=== PATIENT | male | born 2000 | race Caucasian/White ===

== ENCOUNTER 2023-08-10 11:27 | Outpatient (CLI) | payer OTHER ==
--- NOTE | 2023-08-10 20:02 | XRAY Report ---
PROCEDURE: Foot 3 View RT INDICATIONS: RIGHT FOOT PAIN TECHNIQUE: 3 views of the foot were acquired. COMPARISON: None. FINDINGS: Bones: No fractures or dislocations. No suspicious bony lesions. Soft tissues: No suspicious soft tissue calcifications or masses. IMPRESSION: No acute bony abnormality. Reviewed by: Cm Hayes MD on 08/10/2023 8:01 PM [facility] Approved by: Cm Hayes MD on 08/10/2023 8:01 PM PST Station ID: [id number]
== END 2023-08-10 11:28 | disposition home or self-care (01) ==
LOC: DI 11:27
PROVIDERS: ATTEND Physician Assistant Medical
DX: M79.671 Pain in right foot (principal)

== ENCOUNTER 2024-02-15 14:47 | Emergency (ER) | payer OTHER ==
--- NOTE | 2024-02-15 16:41 | XRAY Report ---
PROCEDURE: Elbow 3+V RT INDICATIONS: Trauma TECHNIQUE: 3 views of the elbow were acquired. COMPARISON: None. FINDINGS: Bones: No fractures or dislocations. No suspicious bony lesions. Soft tissues: No effusion. No suspicious soft tissue calcifications or masses. IMPRESSION: No acute bony abnormality or significant joint effusion. Reviewed by: Alen Griffiths MD on 02/15/2024 4:40 PM PDT Approved by: Alen Griffiths MD on 02/15/2024 4:40 PM PDT Station ID: [id number]
--- NOTE | 2024-02-15 16:56 | ED Physician Documentation ---
PD HPI UPPER EXT INJURY - Stated complaint Stated Complaint: RT ELBOW PX - Chief complaint Chief Complaint: Ext Problem - History obtained from History obtained from: Patient - Additonal information Additional information: Patient is a 23-year-old male, active duty [employer], presenting for evaluation of right elbow pain for the past 3 days. Patient states that he often lifts and pushes items at work and prefers to be left-handed with tasks but does have to use his right hand at work at times. No specific injury noted. No fever, redness.No trauma. Review of Systems Musculoskeletal: reports: Extremity pain PD PAST MEDICAL HISTORY - Past Medical History Past Medical History: No - Past Surgical History Past Surgical History: No - Present Medications Home Medications: Ambulatory Orders Medication Instructions Recorded Confirmed No Known Home Medications 02/15/24 02/15/24 - Allergies Allergies/Adverse Reactions: Allergies Allergy/AdvReac Type Severity Reaction Status Date / Time No Known Drug Allergies Allergy Verified 02/15/24 15:00 - Social History Does the pt smoke?: No Smoking Status: Former smoker Does the pt drink ETOH?: No Does the pt have substance abuse?: No PD ED PE NORMAL - General General: Alert and oriented X 3, No acute distress, Well developed/nourished - HEENT HEENT: Atraumatic - Cardiac Cardiac: Strong equal pulses - Respiratory Respiratory: No respiratory distress - Extremities Extremities: No deformity, Normal ROM s pain, Other (Reports tenderness to the medial right elbow with no visible deformity, no joint swelling or redness; Normal range of motion at right wrist and shoulder) Results - Vitals Vitals: Vital Signs - 24 hr 02/15/24 02/15/24 14:57 17:00 Temperature 36.5 C Heart Rate 74 79 Respiratory 18 18 Rate Blood Pressure 153/78 H 135/71 H O2 Saturation 100 99 Oxygen O2 Source Room air PD Medical Decision Making - ED course ED course: Patient presenting for evaluation of right elbow pain. Neurovascularly intact. No redness or swelling to suggest infection. X-ray was obtained which I reviewed I see no fracture or dislocation. Patient has normal range of motion. May have strain from work activities. While patient on limited duty until seen for follow-up with the [employer] [facility] along with supportive care. Patient counseled on concerning symptoms to return for. Departure - Departure Disposition: 01 Home, Self Care Clinical Impression: Strain of right elbow Condition: Stable Instructions: ED Sprain Elbow Comments: Your x-ray today does not show any signs of a broken or dislocated bone in regards to your elbow pain. You may have strained muscles or ligaments in the region causing the pain. Continue with an anti-inflammatory over the weekend such as acetaminophen or ibuprofen. I would recommend an elbow compression slee ve that you can buy at local pharmacies that may provide some support. I will have you on work restrictions for a few days and would recommend close follow-up with the [employer] [facility]. Forms: PCP List, Activity restrictions Discharge Date/Time: 02/15/24 17:00
[2024-02-15 17:11] VITALS: BP 135/71; O2SAT 99
== END 2024-02-15 17:00 | disposition home or self-care (01) ==
LOC: ED 14:47
DX: S56.811A Strain of other muscles, fascia and tendons at forearm level, right arm, initial encounter (principal); X50.9XXA Other and unspecified overexertion or strenuous movements or postures, initial encounter
CPT/HCPCS: 99283